=== PATIENT | male | born 1995 | race Two or more races ===

== ENCOUNTER 2023-07-06 16:44 | Emergency (ER) | payer SELFPAY ==
[2023-07-06] MEDS: Lidocaine 1% 5 ML VIAL INJECT STA ×2 (18:34→19:23)
[2023-07-06] MEDS: Diphtheria,Pertussis(Acell),Tetanus Vaccine 0.5 ML Syringe IM ONE (19:22)
[2023-07-06] MEDS: cefTRIAXone 1 GM Vial IM STA (19:23)
== END 2023-07-06 20:31 | disposition home or self-care (01) ==
LOC: MW.ED 16:44
DX: S62.620B Displaced fracture of middle phalanx of right index finger, initial encounter for open fracture (principal); Z23 Encounter for immunization; F17.210 Nicotine dependence, cigarettes, uncomplicated; W23.0XXA Caught, crushed, jammed, or pinched between moving objects, initial encounter
CPT/HCPCS: 12002; 73140; 90471; 90715; 96372; 99283; J0696; J3490